=== PATIENT | male | born 1995 | race Caucasian/White ===

== ENCOUNTER 2021-09-27 15:53 | Emergency (ER) | payer OTHER ==
[2021-09-27] MEDS ORDERED: IBUPROFEN800 MG PO (18:34)
[2021-09-27] MEDS ORDERED: NORCO 5/3251 EACH PO (19:11)
== END 2021-09-27 19:35 | disposition home or self-care (01) ==
LOC: FER 15:53
DX: S82.435A Nondisplaced oblique fracture of shaft of left fibula, initial encounter for closed fracture (principal); Z87.891 Personal history of nicotine dependence; X50.1XXA Overexertion from prolonged static or awkward postures, initial encounter; Y93.72 Activity, wrestling; Y92.009 Unspecified place in unspecified non-institutional (private) residence as the place of occurrence of the external cause; Z28.310 Unvaccinated for COVID-19
CPT/HCPCS: 73610